=== PATIENT | male | born 1980 | race Hispanic/Latino ===

== ENCOUNTER 2021-11-04 09:38 | Emergency (ER) | payer SELFPAY ==
[2021-11-04 09:50] VITALS: BP 133/85
[2021-11-04] MEDS ORDERED: TETANUS,DIPH,PERTUSS(ACELL) VACCINE 0.5 ML SYRINGE IM ONE (10:17)
[2021-11-04] MEDS ORDERED: LIDOCAINE (2%) 20 MG/1 ML VIAL 20 ML MDV INFILTRATI STA (10:17)
--- NOTE | 2021-11-04 10:43 | Emergency Department Report ---
ED Laceration HPI - HPI Chief Complaint: Laceration/Recheck/Suture Stated Complaint: CUT LEFT FINGER Time Seen by Provider: 11/04/21 10:17 Occurred When: Today Location: Upper Extremity Severity: mild Tetanus Status: Unknown Laceration Symptoms: Yes Pain, No Foreign Body Sensation, No Numbness, No Weakness Other History: Was at work utilizing his knife trying to help pry an object when it lost its position and came across his left third DIP joint on the dorsal side resulting in laceration bleeding and significant decrease in extension range of motion. Pain is dull and throbbing rating 7 out of 10 worse with palpation and range of motion slightly improved with immobility ED Review of Systems ROS: Stated complaint: CUT LEFT FINGER Other details as noted in HPI Comment: All other systems reviewed and negative Laceration Physical Exam - Exam General: Vital signs noted. No distress. Alert and acting appropriately. Laceration Location: Upper Extremity Full Body Front + Back: 1 - 1.5 cm linear laceration across the the distal interphalangeal joint with complete loss of extension of the third third digit resembling the formation of a mallet finger Laceration Exam: Yes Normal Distal CMS, No Foreign Body, No Exposed Tendon, Vessel, or Nerve, No Tendon Injury ED Course Vital Signs 11/04/21 09:49 Temperature 98.4 F Pulse Rate 100 H Respiratory 18 Rate Blood Pressure 133/85 O2 Sat by Pulse 99 Oximetry - Laceration /Wound Repair Left Finger Wound Length (cm): 1 Wound's Depth, Shape: linear Wound Explored: clean Irrigated w/ Saline (ccs): 20 Betadine Prep?: Yes Anesthesia: 1% Lidocaine Volume Anesthetic (ccs): 2 Wound Repaired With: sutures Suture Size/Type: 4:0, proline Number of Sutures: 2 Critical care attestation.: If time is entered above; I have spent that time in minutes in the direct care of this critically ill patient, excluding procedure time. ED Disposition Clinical Impression: Finger laceration Disposition: 01 HOME / SELF CARE / HOMELESS Is pt being admited?: No Does the pt Need Aspirin: No Condition: Stable Instructions: Laceration Care, Adult, Sutures, Shelbi, or Adhesive Wound Closure, Sutured Wound Care Additional Instructions: He was evaluated department for a laceration to your finger. Sutures were placed and sent interprofessional finger placed in a splint. Please be sure to have the wound evaluated for suture removal in 10days however it may take up to 14 for the heel being the laceration on the joint. Is imperative you follow-up with hand Ortho so that they can repair your tendon so if you hope to regain full function ability Referrals: [facility] [Provider Group] - 3-5 Days [facility] [Provider Group] - 3-5 Days
== END 2021-11-04 11:46 | disposition home or self-care (01) ==
LOC: ED 09:38
DX: S61.213A Laceration without foreign body of left middle finger without damage to nail, initial encounter (principal); W26.0XXA Contact with knife, initial encounter; Y93.89 Activity, other specified; Y92.89 Other specified places as the place of occurrence of the external cause; Y99.8 Other external cause status
CPT/HCPCS: 12001; 90715; 99282; J3490